=== PATIENT | male | born 1965 | race Asian ===

== ENCOUNTER 2023-09-03 07:06 | Day surgery (SDC) | payer OTHER ==
[~2023-09-03] VITALS: Ht 160 cm; Wt 68.1 kg
[~2023-09-03 07:06] MED LIST: IBLOOD GLUCOSE TEST STRIP 1 EA TEST VI PRN; LACTATED RINGER'S 1,000 ML IV SCH; LIDOCAINE HCL 1% 5 ML SDV INJ ONE; MIDAZOLAM HCL 5 MG/5 ML VIAL IV PRN; fentaNYL citrate 100 MCG/2 ML VIAL IV PRN
[2023-09-03 07:26] VITALS: BP 127/86
[2023-09-03] MEDS ORDERED: HYDROCHLOROTH12.5 MG PO (07:30)
[2023-09-03] MEDS ORDERED: fentaNYL citrate 100 MCG/2 ML VIAL ONE (08:23)
[2023-09-03] MEDS ORDERED: MIDAZOLAM HCL 5 MG/5 ML VIAL ONE (08:23)
--- NOTE | 2023-09-03 08:55 | NUR ---
715 PT CAME INTO DAY SURGERY WITH SISTER IN LAW AND . ASKED IF PT WANTED ASSOCIATE BUSINESS ANALYST, PT OPTED OUT OF USING ASSOCIATE BUSINESS ANALYST SERVICES AND WANTED TO USE SISTER INLSUNDEEP ACCOUNT ASSISTANT. WENT THROUGH CHECK IN PROCESS AND QUESTIONS WTIH SISTER IN LAW INTREPRETER.
--- NOTE | 2023-09-03 09:08 | NUR ---
09/03/23 0908 Shireen Abreu PATIENT ARRIVES TO PACU RESTING, WITH EYES CLOSED. SNORING RESPIRATIONS HEARD.
[2023-09-03 09:42] VITALS: BP 123/91
--- NOTE | 2023-09-03 10:30 | OR ---
[facility] [address], [place] [address] Signed DATE OF OPERATION: 09/03/2023 SURGEON: Janak Blancas MD PREOPERATIVE DIAGNOSES: 1. Internal hemorrhoids. 2. Personal history of tubular adenomatous polyps x2 in 2013 at age 49. 3. Mildly tortuous colon. 4. Intermittent chronic rectal bleeding. POSTOPERATIVE DIAGNOSES: 1. Left greater than right diverticulosis. 2. 4 mm polypoid lesion at 78 cm in the proximal left colon. 3. Mildly tortuous colon. 4. Minimal internal hemorrhoid tissue. PROCEDURE: Colonoscopy with hot biopsy. ESTIMATED BLOOD LOSS: None. 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 I have known his family for many years. His lkpfiw-si-gge always comes to help interpret for the family. She always declines the shank tapper. We know that Shawna underwent a colonoscopy with Dr. Andrew Basilio in [place], [place] in 2013 at the age of 49. He was having some chronic intermittent rectal bleeding with bowel movements. He had some internal hemorrhoids and two small tubular adenomatous polyps removed. He is said to have a mildly tortuous colon. He did very well with 3 mg of Versed and 100 mg of Demerol. He was asked to follow up in 5 years. He said he has no lower GI complaints. He still sees some blood with his stool when he eats spicy food. No family history of colon cancer or polyps. In the office, I gave him a pamphlet on colonoscopy. We went over it together in detail. He recalls the nature of the test. Several other family members have been through colonoscopy as well. There is risk including, but not limited to gas bloating, crampy abdominal pain, bleeding, perforation requiring surgery, and missed diagnosis. We also reviewed the written instructions for the bowel prep line by line including his medications. We also reviewed the need for IV conscious sedation. He understands an adult person has to take him home afterwards. He is not to go to work for 24 hours. He has expressed understanding and wished to Electronically Signed By: JANAK BLANCAS MD 09/03/23 1030 PATIENT NAME: SHAWNA MARCIAL OPERATIVE REPORT DATE OF : 65 REPORT #: [id number] PHYSICIAN: JANAK BLANCAS MD PCP: CRISS BLOCK MD REPORT IS CONFIDENTIAL AND NOT TO BE RELEASED WITHOUT AUTHORIZATION [facility] [address], [place] [address] Signed proceed. DESCRIPTION OF PROCEDURE: Shawna was taken into our endoscopy suite and placed in the left lateral decubitus position. We had his xzeaha-pp-qum on the phone, so we could give him some instructions. As always, she is very helpful. He was given 5 mg of Versed and 100 mcg of fentanyl to cover the case. A digital rectal exam was performed. He has good sphincter tone. No external hemorrhoids. His prostate is moderately indurated and swollen. The right is a little more prominent than the left. The adult colonoscope was introduced and advanced under direct visualization of the camera up into the cecum itself. His prep was quite good. We could easily see the appendiceal orifice and the ileocecal valve. He also has diverticulosis a few in the cecum, right colon and the rest are in the sigmoid colon. They are moderate in size, few in number and scattered about. He had a couple areas of liquid stool that I suctioned out. We think he had a suction bite back at 78 cm in the proximal left colon. However, it seemed to persist, so we went ahead and biopsied that with a hot biopsy forceps. The rectum was unremarkable. Upon retroflexion of the scope, he has very minimal internal hemorrhoid tissue. After this, the gas was suctioned out and the colonoscope removed. Shawna tolerated the procedure quite well. RECOMMENDATIONS: I will see Shawna back in my office in 7 to 14 days to review his results. I suspect he will stay on the five year plan. Janak Blancas MD [facility] /[id number] cc: MD Janak Colon MD Electronically Signed By: JANAK BLANCAS MD 09/03/23 1030 PATIENT NAME: SHAWNA MARCIAL OPERATIVE REPORT DATE OF : 65 REPORT #: [id number] PHYSICIAN: JANAK BLANCAS MD PCP: CRISS BLOCK MD REPORT IS CONFIDENTIAL AND NOT TO BE RELEASED WITHOUT AUTHORIZATION [address] [address] Signed Copies: JANAK BLANCAS MD ~ Electronically Signed By: JANAK BLANCAS MD 09/03/23 1030 PATIENT NAME: SHAWNA MARCIAL [place] OPERATIVE REPORT DATE OF : 65 REPORT #: [id number] PHYSICIAN: JANAK BLANCAS MD PCP: CRISS BLOCK MD REPORT IS CONFIDENTIAL AND NOT TO BE RELEASED WITHOUT AUTHORIZATION
--- NOTE | 2023-09-05 16:40 | PATH ---
[facility] [address] [place] [address] Signed SPECIMEN(S): A PROXIMAL DESCENDING COLON POLYP SPECIMEN SOURCE: A. PROXIMAL DESCENDING COLON POLYP CLINICAL HISTORY: History of polyps, poss. sm right colon polyp FINAL PATHOLOGIC DIAGNOSIS: Proximal descending colon polyp: - Hyperplastic polyp (one fragment). JVR:clv MICROSCOPIC EXAMINATION: Histologic sections of all submitted blocks are examined by light microscopy. These findings, together with the gross examination, support the pathologic diagnosis. GROSS DESCRIPTION: The specimen, labeled and designated "Madelaine proximal descending/left colon polyp at 78 cm," is received in formalin and consists of one fajardo soft tissue fragment, 0.2 cm. Entirely submitted in (A1). VB (under the direct supervision of a pathologist) The Gross Description was prepared using a voice recognition system. The report was reviewed for accuracy; however, sound-alike word errors, addition and/or deletions may occur. If there is any question about this report, please contact Client Services. PERFORMING LABORATORY: Technical component was performed by [facility], [address] [place] [id number] (CLIA# [id number]). Professional interpretation was performed by [facility], [address] [place] [id number] (CLIA#: [id number]). Diagnostician: Cedric Horton MD Pathologist Electronically Signed 09/05/2023 Copies: PATIENT NAME: SHAWNA MARCIAL PATHOLOGY DATE OF : 65 REPORT #: [id number] PHYSICIAN: [facility] PCP: CRISS BLOCK MD REPORT IS CONFIDENTIAL AND NOT TO BE RELEASED WITHOUT AUTHORIZATION [address] [address] Signed ~ PATIENT NAME: SHAWNA MARCIAL PATHOLOGY DATE OF : 65 REPORT #: [id number] PHYSICIAN: [facility] PCP: CRISS BLOCK MD REPORT IS CONFIDENTIAL AND NOT TO BE RELEASED WITHOUT AUTHORIZATION
== END 2023-09-03 09:45 | disposition home or self-care (01) ==
LOC: OPS 07:06 → DS 07:06 → OPS 07:30 → DS 07:30 → OPS 09:45
PROVIDERS: ATTEND Colon & Rectal Surgery
PROC: 0DBG8ZX Excision of Left Large Intestine, Via Natural or Artificial Opening Endoscopic, Diagnostic (ICD-10-PCS; principal; 2023-09-03 07:30)
DX: K63.5 Polyp of colon (principal); K63.89 Other specified diseases of intestine; K64.8 Other hemorrhoids; I10 Essential (primary) hypertension; F17.200 Nicotine dependence, unspecified, uncomplicated; Z86.010 Personal history of colon polyps
CPT/HCPCS: 99153; G0500; J2250; J3010; J7121